=== PATIENT | male | born 1975 | race African-American/Black ===

== ENCOUNTER 2018-12-03 15:21 | Emergency (ER) | payer MEDICAID ==
[~2018-12-03] VITALS: Ht 188 cm; Wt 99.8 kg
[2018-12-03] MEDS ORDERED: LEXAPRO10 MG ORAL (15:26)
[2018-12-03] MEDS ORDERED: XARELTO10 MG ORAL (15:27)
[2018-12-03] MEDS ORDERED: Morphine Sulfate 2mg/ml Inj(IV/IM USE ONLY) IVP ONE (15:45)
[2018-12-03] MEDS ORDERED: Morphine Sulfate 2mg/ml Inj(IV/IM USE ONLY) IM ONE (15:45)
[2018-12-03 15:51] VITALS: BP 152/86
[2018-12-03] MEDS ORDERED: MS Contin 15mg tab ORAL ONE (16:00)
[2018-12-03] MEDS ORDERED: Lidocaine HCl 2% Jelly 6ml Tube TOPIC ONE (16:45)
[2018-12-03] MEDS ORDERED: LD2JL30 TOPIC (17:01)
[2018-12-03 17:07] VITALS: BP 148/74
--- NOTE | 2018-12-03 23:38 | Emergency Room Report ---
History of Present Illness General Chief Complaint: General Complaint Source: Patient Present Illness HPI Patient is a 43-year-old male who presented after increased rectal pain. Patient reports having prior history of rectal cancer. He denies vomiting and reports having flatus. He denies recent chemotherapy or radiation. Patient was noted to be chronically prescribed pain medications. Patient was noted to have some generalized abdominal pain he reports having run out of his pain medications 1 day prior to arrival. Patient's cures report was noted to show that he had been prescribed OxyContin 15 mg. Allergies: Coded Allergies: SULFA (SULFONAMIDE ANTIBIOTICS) (Verified Allergy, Unknown, 12/03/18) Patient History Past Medical History: see triage record Reviewed Nursing Documentation: PMH: Agreed; PSxH: Agreed Nursing Documentation-PMH Past Medical History: No History, Except For Hx Cardiac Problems: No - hx of PE Hx Cancer: Yes - stage III rectal ca Review of Systems All Other Systems: negative except mentioned in HPI Physical Exam Vital Signs Date Time Temp Pulse Resp B/P (MAP) Pulse Ox O2 Delivery O2 Flow Rate FiO2 12/03/18 15:23 97.5 106 18 178/95 96 Room Air General Appearance: well appearing, no apparent distress, alert, GCS 15 Head: normocephalic, atraumatic ENT: hearing grossly normal, normal voice Neck: full range of motion, supple Respiratory: no respiratory distress, speaking full sentences Cardiovascular #1: normal inspection, normal peripheral pulses, regular rate, rhythm Gastrointestinal: normal inspection, normal bowel sounds, soft, no mass Musculoskeletal: no calf tenderness Neurologic: normal inspection, alert, oriented x3, responsive, normal gait Psychiatric: mood/affect normal Skin: no rash Medical Decision Making Diagnostic Impression: Primary Impression: Rectal cancer Additional Impression: Opioid dependence ER Course . Patient presented for increased rectal pain. Patient was noted to have known history of rectal cancer. Patient states this is similar to his prior episodes of pain and thinks that this is likely related to her running out of his pain medications. Patient has a benign exam. Patient was given pain medications in the emergency department. He was advised to follow-up with his pain management doctors for prescriptions of medications. He was given prescription for lidocaine jelly. Last Vital Signs Date Time Temp Pulse Resp B/P (MAP) Pulse Ox O2 Delivery O2 Flow Rate FiO2 12/03/18 17:07 98.1 71 15 148/74 99 Room Air Status: improved Disposition: HOME, SELF-CARE Condition: Stable Scripts Lidocaine HCL 2% Jelly* (Lidocaine Jelly 2%*) 5 Ml Jel.[email or web address] 5 ML TOPIC DAILY, #30 ML Prov: Jeanmarie Wilson MD 12/03/18 Referrals: NON PHYSICIAN (PCP) Patient Instructions: Opioid Withdrawal Additional Instructions: Follow up with your doctors for your pain medications. Return if any fever, persistent vomitting or other concerns. Jeanmarie Wilson MD Dec 03, 2018 23:38
== END 2018-12-03 17:10 | disposition home or self-care (01) ==
LOC: EMR 15:58
DX: C20 Malignant neoplasm of rectum (principal); F11.20 Opioid dependence, uncomplicated; Z88.2 Allergy status to sulfonamides
CPT/HCPCS: 96372; 96374; 99284; J2270